=== PATIENT | male | born 1990 | race Two or more races ===

== ENCOUNTER 2025-02-26 19:31 | Emergency (ER) | payer OTHER ==
[~2025-02-26] VITALS: Ht 162.6 cm; Wt 52.2 kg
[2025-02-26 19:35] VITALS: BP 153/88; O2SAT 98
[2025-02-26] MEDS ORDERED: PIPERACILLIN/TAZOBACTAM SODIUM 3.375 GM VIAL IV ONE ×2 (19:45→19:49)
[2025-02-26 20:21] LABS: HEMATOCRIT 41.7 % (39.0-48.0); HEMOGLOBIN 14.3 g/dL (13-16.00); MEAN CELL VOLUME 95.9 fL (80.0-100.00); MEAN CORPUSCULAR HEMOGLOBIN 32.9 pg (27.00-32.0); MEAN CORPUSCULAR HGB CONC 34.4 g/dl (32.0-36.0); PLATELET COUNT 266 K/uL (150-450); RED BLOOD COUNT 4.35 M/uL (4.00-6.00); RED CELL DISTRIBUTION WIDTH 12.8 % (11.5-14.5)
== END 2025-02-26 22:16 | disposition home or self-care (01) ==
LOC: ER 19:32
PROVIDERS: Emergency Medicine
DX: L08.82 Omphalitis not of newborn (principal)

== ENCOUNTER 2025-05-16 11:18 | Emergency (ER) | payer OTHER ==
[~2025-05-16] VITALS: Ht 162.6 cm; Wt 47.2 kg
[2025-05-16 11:55] VITALS: BP 115/72; O2SAT 98
[2025-05-16] MEDS ORDERED: CEFTRIAXONE SODIUM 1,000 MG VIAL IV ONE (12:15)
[2025-05-16 12:30] LABS: BASO % 0.5 % (0.1-1.2); EOS # 0.01 (0.04-0.54); EOS % 0.1 % (0.7-7.0); LYMPH # 1.43 (1.18-3.74); LYMPH % 12.9 % (19.3-53.1); MEAN PLATELET VOLUME 8.50 fl (9.4-12.4); MONO # 0.53 (0.24-0.82); MONO % 4.8 % (4.7-12.5); NEUT # 9.06 (1.56-6.13); NEUT % 81.4 % (34.0-71.1); RED CELL DISTRIBUTION WIDTH 12.2 % (11.6-14.4)
[2025-05-16] MEDS ORDERED: KETOROLAC TROMETHAMINE 30 MG VIAL IV ONE (12:45)
[2025-05-16 13:09] LABS: URINE APPEARANCE Clear; URINE BILIRRUBIN Negative (NEGATIVE); URINE BLOOD Negative; URINE COLOR Yellow; URINE GLUCOSE Negative (NEGATIVE); URINE KETONE Negative (NEGATIVE); URINE LEUKOCYTE Negative; URINE NITRATE Negative; URINE PROTEIN Trace (NEGATIVE); URINE UROBILINOGEN 1.0 E.U./dl
[2025-05-16 13:13] LABS: URINE BACTERIA 6.0 uL (0.0-1933); URINE CAST 1.46 uL (0.0-1.40); URINE EPITHELIAL CELLS 4.6 uL (0.0-38.8); URINE RBC 9.9 uL (0.0-20.8); URINE WBC 2.6 uL (0.0-23.2)
[2025-05-16 13:31] LABS: BUN CREA RATIO 15.0 (7.0-25.0); CREATININE SERUM 0.92 mg/dL (0.70-1.30); GFR 93.62; GLUCOSE FASTING 102.0 mg/dL (65-100); OSMOLALITY SERUM 284.0 MOSM/KG (275-295)
[2025-05-16] MEDS ORDERED: METRONIDAZOLE500 MG PO (18:30)
[2025-05-16] MEDS ORDERED: PROBIOTIC1 EAC2 PO (18:30)
[2025-05-16] MEDS ORDERED: LEVSIN/SL0.125 MG SL (18:30)
[2025-05-16] MEDS ORDERED: CIPRO500 MG PO (18:30)
[2025-05-16] MEDS ORDERED: PEPCID AC20 MG PO (18:30)
== END 2025-05-16 18:55 | disposition home or self-care (01) ==
LOC: ER 11:18
PROVIDERS: Emergency Medicine
DX: L08.82 Omphalitis not of newborn (principal); R10.9 Unspecified abdominal pain

== ENCOUNTER 2025-05-19 21:31 | Emergency (ER) | payer OTHER ==
[~2025-05-19] VITALS: Ht 152.4 cm; Wt 46.3 kg
[~2025-05-19 21:31] MED LIST: CIPRO500 MG PO; LEVSIN/SL0.125 MG SL; METRONIDAZOLE500 MG PO; PEPCID AC20 MG PO; PROBIOTIC1 EAC2 PO
[2025-05-19] MEDS ORDERED: FAMOTIDINE/PF 20 MG in 0.9 % SODIUM CHLORIDE 8 ML IV PUSH STA (21:50)
[2025-05-19] MEDS ORDERED: DIPHENOXYLATE HCL/ATROPINE 1 UDTAB TABLET PO ONE (22:00)
[2025-05-19] MEDS ORDERED: KETOROLAC TROMETHAMINE 30 MG VIAL IV ONE ×2 (22:00→23:45)
[2025-05-19] MEDS ORDERED: 0.9 % SODIUM CHLORIDE 1,000 ML IV SCH (22:00)
[2025-05-19] MEDS ORDERED: ONDANSETRON HCL 2 MG/ML VIAL IV ONE (22:00)
[2025-05-19 22:19] LABS: BASO % 0.6 % (0.1-1.2); EOS # 0.00 (0.04-0.54); EOS % 0.0 % (0.7-7.0); LYMPH # 1.30 (1.18-3.74); LYMPH % 10.0 % (19.3-53.1); MEAN PLATELET VOLUME 8.70 fl (9.4-12.4); MONO # 0.33 (0.24-0.82); MONO % 2.5 % (4.7-12.5); NEUT # 11.28 (1.56-6.13); NEUT % 86.6 % (34.0-71.1); RED CELL DISTRIBUTION WIDTH 11.9 % (11.6-14.4)
[2025-05-19 22:36] LABS: ALT/SGPT 33.0 U/L (12-78); AST/SGOT 32.0 U/L (15-37); BILIRUBIN TOTAL 0.77 mg/dL (0.3-1.2); BUN CREA RATIO 14.0 (7.0-25.0); CREATININE SERUM 1.2 mg/dL (0.70-1.30); GFR 68.9; GLOBULINA 4.4 G/DL (2.4-3.5); GLUCOSE FASTING 123.0 mg/dL (65-100); OSMOLALITY SERUM 286.0 MOSM/KG (275-295)
== END 2025-05-20 02:29 | disposition home or self-care (01) ==
LOC: ER 21:31
PROVIDERS: General Practice
DX: K29.70 Gastritis, unspecified, without bleeding (principal); K52.9 Noninfective gastroenteritis and colitis, unspecified; R11.10 Vomiting, unspecified